=== PATIENT | female | born 1960 | race Asian ===

== ENCOUNTER 2018-02-01 20:41 | Emergency (ER) | payer OTHER ==
[~2018-02-01] VITALS: Ht 182.9 cm; Wt 113.4 kg
[2018-02-01 20:55] VITALS: TEMP 98.9
[2018-02-01 23:05] VITALS: BP 139/81
== END 2018-02-01 22:55 | disposition home or self-care (01) ==
LOC: ED 20:41
DX: M54.42 Lumbago with sciatica, left side (principal)
CPT/HCPCS: 96372; 99283; J1100; J1885

== ENCOUNTER 2018-03-23 11:41 | Outpatient (CLI) | payer OTHER | END 2018-03-23 19:47 | disposition home or self-care (01) | LOC: MRI 11:41 | DX: M54.16 Radiculopathy, lumbar region (principal) ==

== ENCOUNTER 2020-08-29 10:00 | Outpatient (CLI) | payer OTHER ==
[2020-08-29 10:21] LABS: PLATELET COUNT 231 K/uL (152-353)
[2020-08-29 10:42] LABS: POTASSIUM 3.6 mmol/L (3.6-5.2)
== END 2020-08-29 19:34 | disposition home or self-care (01) ==
LOC: LABW 10:00
PROVIDERS: ATTEND Registered Nurse
DX: Z13.0 Encounter for screening for diseases of the blood and blood-forming organs and certain disorders involving the immune mechanism (principal); Z83.3 Family history of diabetes mellitus
CPT/HCPCS: 36415; 80053; 80061; 80074; 84436; 84443; 84479; 85027

== ENCOUNTER 2022-12-20 01:02 | Emergency (ER) | payer OTHER ==
[~2022-12-20] VITALS: Ht 182.9 cm; Wt 122.5 kg
[2022-12-20 03:08] LABS: PLATELET COUNT 220 K/uL (152-353)
[2022-12-20 04:20] VITALS: BP 167/96; TEMP 98.3
== END 2022-12-20 04:20 | disposition home or self-care (01) ==
LOC: ED 01:02
PROVIDERS: Family Medicine
DX: N39.0 Urinary tract infection, site not specified (principal); D25.9 Leiomyoma of uterus, unspecified
CPT/HCPCS: 81000; 85027; 87088; 96360; 96361; 96365; 99284; J0696